=== PATIENT | female | born 1970 | race Caucasian/White ===

== ENCOUNTER 2020-02-23 09:56 | Outpatient (CLI) | payer OTHER ==
[2020-02-23 13:27] LABS: BASOPHILS # (AUTO) 0.1 10^3/uL (0.0-0.1); EOSINOPHILS # (AUTO) 1.5 10^3/uL (0.0-0.7); EOSINOPHILS % (AUTO) 11.4 %; LYMPHOCYTES # (AUTO) 2.6 10^3/uL (1.5-3.5); LYMPHOCYTES % (AUTO) 20.5 %; MEAN CORPUSCULAR HEMOGLOBIN 29.3 pg (27.0-31.0); MEAN CORPUSCULAR HGB CONC 31.7 g/dL (32.0-36.0); MEAN CORPUSCULAR VOLUME 92.4 fL (81.0-99.0); MONOCYTES # (AUTO) 0.9 10^3/uL (0.0-1.0); MONOCYTES % (AUTO) 6.6 %; NEUTROPHILS # (AUTO) 7.7 10^3/uL (1.5-6.6); PLT - PLATELET COUNT 359 10^3/uL (130-450); RED BLOOD COUNT 5.12 10^6/uL (4.20-5.40); RED CELL DISTRIBUTION WIDTH 14.8 % (12.0-15.0); WHITE BLOOD COUNT 12.8 x10^3/uL (4.8-10.8)
[2020-02-23 13:38] LABS: HB2 TOTAL 15.8 g/dL; HEMOGLOBIN A1C 0.54 g/dL; HEMOGLOBIN A1C % 5.3 % (4.6-6.2)
[2020-02-23 13:40] LABS: ALBUMIN 3.8 g/dL (3.2-5.5); ALKALINE PHOSPHATASE 91 IU/L (42-121); ALT ALANINE AMINOTRANSFERASE 50 IU/L (10-60); AST ASPARTATE AMINOTRANSFERASE 33 IU/L (10-42); BILIRUBIN,TOTAL 0.6 mg/dL (0.2-1.0); BUN - BLOOD UREA NITROGEN 24 mg/dL (6-20); CALCIUM 9.1 mg/dL (8.5-10.3); CARBON DIOXIDE - CO2 21 mmol/L (21-32); CHLORIDE 109 mmol/L (101-111); CHOL/HDL RATIO 3.9 (<4.4); CHOLESTEROL 234 mg/dL; CREATININE 0.8 mg/dL (0.4-1.0); GLUCOSE 111 mg/dL (70-100); HDL CHOLESTEROL 60 mg/dL; LDL CHOLESTEROL,CALCULATED 149 mg/dL; LDL/HDL RATIO 2.5 (<4.4); SODIUM 137 mmol/L (135-145); TOTAL PROTEIN 7.7 g/dL (6.7-8.2); VLDL CHOLESTEROL 25 mg/dL
[2020-02-23 14:13] LABS: FREE T4 (FREE THYROXINE) 0.59 ng/dL (0.58-1.64)
[2020-02-23 14:49] LABS: RBC MORPHOLOGY (MULTIPLE) 1+ ANISOCYTOSIS (NORMAL)
== END 2020-02-23 23:59 | disposition home or self-care (01) ==
LOC: LAB.WCP 09:56
PROVIDERS: ATTEND Family Medicine
DX: Z00.00 Encounter for general adult medical examination without abnormal findings (principal); E03.9 Hypothyroidism, unspecified
CPT/HCPCS: 36415; 80053; 80061; 83036; 83721; 84439; 84443; 85025

== ENCOUNTER 2020-02-23 09:58 | Outpatient (CLI) | payer OTHER ==
--- NOTE | 2020-02-24 09:01 | XRAY Report ---
Reason: RIGHT SHOULDER PAIN Procedure Date: 02/23/2020 Accession Number: [id number] / [id number] Procedure: WCP - Shoulder 2 View RT CPT Code: Final Report FULL RESULT: EXAM: RIGHT SHOULDER RADIOGRAPHY EXAM DATE: 02/23/2020 10:41 AM. CLINICAL HISTORY: Right shoulder pain. COMPARISON: None. TECHNIQUE: 2 views. FINDINGS: No fracture or subluxation. No calcific tendinosis. Mild osteophytic spurring at the AC articulation. The glenohumeral articulation appears preserved. The subacromial space appears within normal limits. The imaged portion of the right upper lung appears clear. IMPRESSION: Mild degenerative changes at the right shoulder. RADIA
== END 2020-02-23 23:59 | disposition home or self-care (01) ==
LOC: DI.WCP 09:58
PROVIDERS: ATTEND Family Medicine
DX: M19.011 Primary osteoarthritis, right shoulder (principal)

== ENCOUNTER 2021-01-08 09:46 | Outpatient (CLI) | payer OTHER ==
--- NOTE | 2021-01-08 10:29 | XRAY Report ---
PROCEDURE: Chest 2 View X-Ray INDICATIONS: CHEST PX TECHNIQUE: 2 view(s) of the chest. COMPARISON: None. FINDINGS: Surgical changes and devices: None. Lungs and pleura: No pleural effusions or pneumothorax. Lungs are clear. Mediastinum: Mediastinal contours are normal. Heart size is normal. Bones and chest wall: No suspicious bony abnormalities. Soft tissues appear unremarkable. IMPRESSION: Chest without acute cardiopulmonary abnormalities or focal airspace disease. Reviewed by: Gabino Stacy MD on 01/08/2021 10:27 AM PDT Approved by: Gabino Stacy MD on 01/08/2021 10:27 AM PDT Station ID: [id number]
== END 2021-01-08 09:47 | disposition home or self-care (01) ==
LOC: DI.N 09:46
PROVIDERS: ATTEND Family Medicine
DX: R07.9 Chest pain, unspecified (principal)

== ENCOUNTER 2021-01-08 09:53 | Outpatient (CLI) | payer OTHER ==
[2021-01-08 12:13] LABS: BASOPHILS # (AUTO) 0.1 10^3/uL (0.0-0.1); BASOPHILS % (AUTO) 0.7 %; EOSINOPHILS # (AUTO) 0.5 10^3/uL (0.0-0.7); EOSINOPHILS % (AUTO) 4.5 %; HCT - HEMATOCRIT 46.1 % (37.0-47.0); HGB - HEMOGLOBIN 14.9 g/dL (12.0-16.0); LYMPHOCYTES # (AUTO) 2.1 10^3/uL (1.5-3.5); MEAN CORPUSCULAR HEMOGLOBIN 30.9 pg (27.0-31.0); MEAN CORPUSCULAR HGB CONC 32.3 g/dL (32.0-36.0); MEAN CORPUSCULAR VOLUME 95.6 fL (81.0-99.0); MEAN PLATELET VOLUME 10.7 fL (7.9-10.8); MONOCYTES # (AUTO) 0.7 10^3/uL (0.0-1.0); MONOCYTES % (AUTO) 6.4 %; NEUTROPHILS # (AUTO) 7.1 10^3/uL (1.5-6.6); PLT - PLATELET COUNT 340 10^3/uL (130-450); RED BLOOD COUNT 4.82 10^6/uL (4.20-5.40); RED CELL DISTRIBUTION WIDTH 14.3 % (12.0-15.0); WHITE BLOOD COUNT 10.4 x10^3/uL (4.8-10.8)
[2021-01-08 12:15] LABS: ALBUMIN 3.9 g/dL (3.2-5.5); ALKALINE PHOSPHATASE 94 IU/L (42-121); ALT ALANINE AMINOTRANSFERASE 31 IU/L (10-60); AST ASPARTATE AMINOTRANSFERASE 22 IU/L (10-42); BILIRUBIN,TOTAL 0.6 mg/dL (0.2-1.0); BUN - BLOOD UREA NITROGEN 17 mg/dL (6-20); CALCIUM 9.3 mg/dL (8.5-10.3); CARBON DIOXIDE - CO2 25 mmol/L (21-32); CHLORIDE 105 mmol/L (101-111); CHOL/HDL RATIO 3.8 (<4.4); CHOLESTEROL 224 mg/dL; CREATININE 0.9 mg/dL (0.4-1.0); GFR - MDRD 66 (>89); GLUCOSE 112 mg/dL (70-100); HDL CHOLESTEROL 59 mg/dL; LDL CHOLESTEROL,CALCULATED 138 mg/dL; LDL/HDL RATIO 2.3 (<4.4); POTASSIUM 4.4 mmol/L (3.5-5.0); SODIUM 139 mmol/L (135-145); TRIGLYCERIDES 137 mg/dL; VLDL CHOLESTEROL 27 mg/dL
[2021-01-08 12:24] LABS: THYROID STIMULATING HORMONE 2.46 uIU/mL (0.34-5.60)
[2021-01-08 12:33] LABS: ESTIMATED AVERAGE GLUCOSE 105 mg/dL (70-100); HEMOGLOBIN A1c% 5.3 % (4.27-6.07)
== END 2021-01-08 09:54 | disposition home or self-care (01) ==
LOC: LAB.N 09:53
PROVIDERS: ATTEND Family Medicine
DX: Z00.00 Encounter for general adult medical examination without abnormal findings (principal); R07.9 Chest pain, unspecified; E66.01 Morbid (severe) obesity due to excess calories; E03.9 Hypothyroidism, unspecified
CPT/HCPCS: 36415; 80053; 80061; 83036; 83721; 84443; 84484; 85025

== ENCOUNTER 2021-01-28 07:00 | Outpatient (CLI) | payer OTHER ==
--- NOTE | 2021-01-28 10:49 | XRAY Report ---
PROCEDURE: Shoulder 3 View RT INDICATIONS: R SHOULDER PX TECHNIQUE: 4 views of the shoulder were acquired. COMPARISON: None. FINDINGS: Bones: No fractures or dislocations, but there is a mild to moderate degree of AC joint osteoarthrit is.. No suspicious bony lesions. Visualized ribs appear intact. Soft tissues: No suspicious soft tissue calcifications. IMPRESSION: No trauma found but there is mild to moderate AC joint osteoarthritis. Reviewed by: Marcus Cook MD on 01/28/2021 10:47 AM PDT Approved by: Marcus Cook MD on 01/28/2021 10:47 AM PDT Station ID: [id number]
--- NOTE | 2021-01-28 10:52 | XRAY Report ---
PROCEDURE: Knee 4 View RT INDICATIONS: R KNEE PX TECHNIQUE: 4 views of the right knee(s) were acquired. COMPARISON: None. FINDINGS: Bones: No acute fractures or dislocations. Moderate-severe tricompartmental degenerative changes of the right knee most pronounced in the patellofemoral and medial femorotibial compartment. No suspici ous bony lesions. Prominent lateral and patellofemoral compartment marginal osteophytes. Soft tissues: Small joint effusion. No suspicious soft tissue calcifications. IMPRESSION: 1. Right knee without acute fracture or dislocation. 2. Moderate-severe tricompartmental right knee osteoarthrosis most pronounced in the patellofemoral a nd medial femorotibial compartments. Reviewed by: Gabino Stacy MD on 01/28/2021 9:51 AM REMY Approved by: Gabino Stacy MD on 01/28/2021 9:51 AM REMY Station ID: [id number]
== END 2021-01-28 23:59 | disposition home or self-care (01) ==
LOC: DI.N 07:00
PROVIDERS: ATTEND Orthopaedic Surgery
DX: M19.011 Primary osteoarthritis, right shoulder (principal); M17.11 Unilateral primary osteoarthritis, right knee

== ENCOUNTER 2021-02-11 13:09 | Outpatient (CLI) | payer OTHER ==
--- NOTE | 2021-02-19 12:12 | Mammography Report ---
BILATERAL DIGITAL SCREENING MAMMOGRAM 3D/2D: 02/11/2021 CLINICAL: Routine screening. Additional films were requested but not obtained. The tissue of both breasts is predominantly fatty. No significant masses, calcifications, or other findings are seen in either breast. IMPRESSION: NEGATIVE There is no mammographic evidence of malignancy. A 1 year screening mammogram is recommended. This exam was interpreted at Station ID: [id number]. NOTE: For mammograms, a report in lay terms will be sent to the patient. Approximately 15% of breast malignancies will not be visualized mammographically. In the management of a palpable breast mass, a negative mammogram must not discourage biopsy of a clinically suspicious lesion. Electronically Signed By: Karsten campuzano/sadni:02/18/2021 08:49:05 ACR BI-RADS Category 1: Negative 3341F PARENCHYMAL PATTERN: (F) - The breast(s) demonstrate(s) diffuse fatty replacement. BI-RADS CATEGORY: (1) - 1 RECOMMENDATION: (ANNUAL) - Recommend routine annual screening mammography. 20220212 1 year screening LATERALITY: (B)
== END 2021-02-11 13:10 | disposition home or self-care (01) ==
LOC: DI.N 13:09
DX: Z12.31 Encounter for screening mammogram for malignant neoplasm of breast (principal)

== ENCOUNTER 2021-03-09 09:47 | Outpatient (CLI) | payer OTHER ==
[2021-03-09] MEDS ORDERED: IOVERSOL 320 100 ML VIAL IVP ONE ×2 (09:49→11:43)
[2021-03-09] MEDS ORDERED: IOPAMIDOL-300 50 ML VIAL ONE (09:50)
[2021-03-09] MEDS ORDERED: IOPAMIDOL-300 50 ML VIAL PO ONE (11:43)
--- NOTE | 2021-03-09 20:09 | CT Report ---
PROCEDURE: Abdomen/Pelvis W INDICATIONS: HERNIA CONTRAST: IV CONTRAST: Optiray 320 ml: 100 PO CONTRAST: Isovue 300 ml50 TECHNIQUE: After the administration of oral and IV contrast, 5 mm thick sections acquired from the diaphragms to the symphysis. 5 mm thick coronal and sagittal reformats were acquired. For radiation dose reducti on, the following was used: automated exposure control, adjustment of mA and/or kV according to dinora ent size. COMPARISON: None. FINDINGS: Image quality: This study is limited by body habitus. There is artifact associated with the metall ic hardware. ABDOMEN: Lung bases: Lung bases are clear. Heart size is normal. A small hiatal hernia is incidentally note d. Solid organs: Diffuse fatty liver infiltration can be seen. The liver is enlarged. Gallbladder has b een removed. Biliary system is non dilated. No significant splenic abnormality is seen. Pancreas en hances normally. No adrenal nodules. Kidneys demonstrate normal size and enhancement, without hydro nephrosis. Along the posterior aspect of the left kidney, there is a simple appearing cyst seen that measures water density and 1.5 cm. Peritoneum and bowel: Bowel loops demonstrate normal wall thickness and caliber. No free fluid or a ir. Nodes and vessels: No retroperitoneal or mesenteric adenopathy by size criteria. Aorta and inferior vena cava are normal in size. Miscellaneous: There is a prominent right lower quadrant hernia seen, which contains nondilated colon and small bowel, as well as fat. PELVIS: Genitourinary: Bladder wall thickness is normal. The uterus demonstrates an unremarkable appearance for age. No adnexal masses are seen. Miscellaneous: No inguinal hernias or adenopathy. Bones: No suspicious bony lesions. No vertebral body compression fractures. Degenerative changes ar e seen throughout, which are worst involving the lower lumbar spine. Mild dextroconvex scoliotic curv ature is seen. Right hip arthroplasty hardware is seen, with associated streak artifact. IMPRESSION: Prominent right lower quadrant abdominal wall hernia, which contains fat, nondilated col on, and nondilated loops of small bowel. Incidental note is made of: Small hiatal hernia Enlarged, fatty liver. Simple appearing left renal cyst Cholecystectomy Lower lumbar spine degenerative change Right hip arthroplasty, with associated streak artifact Reviewed by: Chidi Martinez MD on 03/09/2021 7:08 PM AKDT Approved by: Chidi Martinez MD on 03/09/2021 7:08 PM REMY Station ID: [id number]
== END 2021-03-09 09:48 | disposition home or self-care (01) ==
LOC: DI 09:47
PROVIDERS: ATTEND Surgery
DX: K43.9 Ventral hernia without obstruction or gangrene (principal)
CPT/HCPCS: 74177; Q9967

== ENCOUNTER 2022-01-19 22:00 | Outpatient (CLI) | payer OTHER | END 2022-01-19 22:01 | disposition critical access hospital (66) | LOC: EMS 22:00 | DX: R10.31 Right lower quadrant pain (principal); K59.00 Constipation, unspecified; R11.2 Nausea with vomiting, unspecified | CPT/HCPCS: A0425; A0427 ==

== ENCOUNTER 2022-01-19 22:18 | Emergency (ER) | payer OTHER ==
--- OUTSIDE RECORDS SUMMARY | 2022-01-19 22:30 | EXTERNAL MEDICAL SUMMARY RPT | Continuity of Care Document ---
:1970 Author Organization [facility] Address [address] [place] [address] Phone Care Team Providers Name Role Phone Dora, Елена Unavailable Unavailable Allergies No information. Encounters No information. Medications No information. Problems date description facility [id number] Shortness of breath [facility] [id number] Pain in right foot [facility] Results No information.
--- NOTE | 2022-01-19 23:13 | ED Physician Documentation ---
PD HPI ABD PAIN - Stated complaint Stated Complaint: ABD PX - Chief complaint Chief Complaint: Abd Pain - History obtained from History obtained from: Patient, EMS - History of Present Illness Timing - onset: Enter time (16:30), Today Timing - details: Gradual onset Pain level now: 8 Quality: Pain Location: RLQ Improved by: Meds (improved with zofran and fentanyl given by EMS en route) Worsened by: Palpation Associated symptoms: Nausea, Vomiting. No: Fever, Hematemesis, Melena, Hematochezia Similar symptoms before: Diagnosis (hernia) Recently seen: Not recently seen - Additional information Additional information: BIBA for abdominal pain, nausea and vomiting. Patient has a remote h/o appendectomy, subsequently (in 1998) had hernia through the appendectomy incision site with repair performed in 1999 which was not successful. She says she has had a gradually increasing hernia since that time. She was evaluated by surgeon last year in outpatient setting and was told no intervention could be undertaken until she loses weight. She has not been to an ED before for this hernia and has never had pain associated with the hernia before. At approximately 4:30 PM today, she had gradual onset of RLQ pain in the area of the hernia, waxing and waning in intensity but steadily progressive , becoming associated with nausea and vomiting. She has improved with IV zofran (4mg) and IV fentanyl (200 micrograms) given by EMS BUILDING CONSTRUCTION ENGINEER. Review of Systems Constitutional: denies: Fever Eyes: reports: Reviewed and negative Ears: reports: Reviewed and negative Nose: reports: Reviewed and negative Throat: reports: Reviewed and negative Cardiac: reports: Reviewed and negative Respiratory: reports: Reviewed and negative GI: reports: Abdominal Pain, Nausea, Vomiting. denies: Diarrhea, Hematemesis, Bloody / black stool : denies: Dysuria, Frequency Skin: reports: Reviewed and negative Musculoskeletal: reports: Reviewed and negative Neurologic: reports: Reviewed and negative PD PAST MEDICAL HISTORY - Past Medical History Past Medical History: Yes Cardiovascular: Hypertension, High cholesterol Endocrine/Autoimmune: HyPOthyroidism GI: GERD Psych: Depression, Anxiety Musculoskeletal: Osteoarthritis - Past Surgical History Past Surgical History: Yes General: Cholecystectomy, Appendectomy, Other Ortho: Hip replacement, Arthroscopic surgery /FIELD RESEARCH ASSISTANT: section - Present Medications Home Medications: Ambulatory Orders Medication Instructions Recorded Confirmed ALPRAZolam [Alprazolam] 0.5 mg PO PRN PRN 01/19/22 01/19/22 Celecoxib [Celebrex] 200 mg PO DAILY 01/19/22 01/19/22 Duloxetine HCl [Cymbalta] 60 mg PO DAILY 01/19/22 01/19/22 Gabapentin [Neurontin] 300 mg PO DAILY 01/19/22 01/19/22 Levothyroxine [Synthroid] 125 mcg PO DAILY 01/19/22 01/19/22 Oxybutynin [Ditropan] 5 mg PO DAILY 01/19/22 01/19/22 Venlafaxine ER [Effexor ER] 75 mg PO DAILY 01/19/22 01/19/22 buPROPion [Wellbutrin Xl] 150 mg PO DAILY 01/19/22 01/19/22 - Allergies Allergies/Adverse Reactions: Allergies Allergy/AdvReac Type Severity Reaction Status Date / Time morphine Allergy Hallucinati Verified 01/19/22 22:30 ons - Social History Does the pt smoke?: No Smoking Status: Never smoker Does the pt drink ETOH?: No Does the pt have substance abuse?: No - Immunizations Immunizations are current?: Yes PD ED PE NORMAL - Vitals Vital signs reviewed: Yes - General General: Alert and oriented X 3, Other (morbidly obese. obvious painful distress) - HEENT HEENT: Moist mucous membranes - Neck Neck: Supple, no meningeal sign - Cardiac Cardiac: RRR, No murmur - Respiratory Respiratory: No respiratory distress, Clear bilaterally - Back Back: No CVA TTP - Derm Derm: Normal color, Warm and dry - Extremities Extremities: No edema - Neuro Neuro: Alert and oriented X 3 PD ED PE EXPANDED - Abdomen Abdomen: Decreased BS, Tender to palpation (large RLQ hernia, TTP) Results - Vitals Vitals: Vital Signs - 24 hr 01/20/22 01/20/22 01/20/22 10:00 12:00 13:30 Heart Rate 89 97 87 Respiratory 12 20 20 Rate Blood Pressure 149/83 H 152/94 H 144/75 H O2 Saturation 92 97 92 01/20/22 15:00 Heart Rate 103 H Respiratory 20 Rate Blood Pressure 137/83 H O2 Saturation 98 Oxygen O2 Source Room air Oxygen Flow Rate 2 - Labs Labs: Laboratory Tests 01/19/22 01/19/22 01/19/22 00:10 00:10 00:10 WBC 14.4 H RBC 4.79 Hgb 14.4 Hct 44.0 MCV 91.9 MCH 30.1 MCHC 32.7 RDW 14.9 Plt Count 307 MPV 10.4 Neut # (Auto) 11.8 H Lymph # (Auto) 1.4 L Will # (Auto) 0.7 Eos # (Auto) 0.3 Baso # (Auto) 0.1 Absolute Nucleated RBC 0.00 Nucleated RBC % 0.0 Sodium 137 Potassium 4.3 Chloride 101 Carbon Dioxide 24 Anion Gap 12.0 BUN 19 Creatinine 0.8 Estimated GFR (MDRD) 75 L Glucose 156 H Lactic Acid 1.7 Calcium 9.2 Total Bilirubin 0.7 AST 45 H ALT 54 Alkaline Phosphatase 110 Total Protein 8.2 Albumin 3.6 Globulin 4.6 H Albumin/Globulin Ratio 0.8 L Lipase 37 Nasal Adenovirus (PCR) Nasal B. parapertussis DNA (PCR) Nasal Coronavir 229E PCR Nasal Coronavir HKU1 PCR Nasal Coronavir NL63 PCR Nasal Coronavir OC43 PCR Nasal Enterovir/Rhinovir PCR Nasal Influenza B PCR Nasal Influenza A PCR Nasal Parainfluen 1 PCR Nasal Parainfluen 2 PCR Nasal Parainfluen 3 PCR Nasal Parainfluen 4 PCR Nasal RSV (PCR) Nasal B.pertussis DNA PCR Nasal C.pneumoniae (PCR) Olegario Human Metapneumo PCR Nasal M.pneumoniae (PCR) Nasal SARS-CoV-2 (PCR) 01/20/22 01/20/22 01/20/22 06:05 07:36 07:36 WBC 12.5 H RBC 4.99 Hgb 15.4 Hct 46.0 MCV 92.2 MCH 30.9 MCHC 33.5 RDW 15.3 H Plt Count 345 MPV 10.5 Neut # (Auto) 9.8 H Lymph # (Auto) 1.6 Will # (Auto) 0.9 Eos # (Auto) 0.1 Baso # (Auto) 0.1 Absolute Nucleated RBC 0.00 Nucleated RBC % 0.0 Sodium Potassium Chloride Carbon Dioxide Anion Gap BUN Creatinine Estimated GFR (MDRD) Glucose Lactic Acid 1.5 Calcium Total Bilirubin AST ALT Alkaline Phosphatase Total Protein Albumin Globulin Albumin/Globulin Ratio Lipase Nasal Adenovirus (PCR) NOT DETECTED Nasal B. parapertussis DNA (PCR) NOT DETECTED Nasal Coronavir 229E PCR NOT DETECTED Nasal Coronavir HKU1 PCR NOT DETECTED Nasal Coronavir NL63 PCR NOT DETECTED Nasal Coronavir OC43 PCR NOT DETECTED Nasal Enterovir/Rhinovir PCR DETECTED A Nasal Influenza B PCR NOT DETECTED Nasal Influenza A PCR NOT DETECTED Nasal Parainfluen 1 PCR NOT DETECTED Nasal Parainfluen 2 PCR NOT DETECTED Nasal Parainfluen 3 PCR NOT DETECTED Nasal Parainfluen 4 PCR NOT DETECTED Nasal RSV (PCR) NOT DETECTED Nasal B.pertussis DNA PCR NOT DETECTED Nasal C.pneumoniae (PCR) NOT DETECTED Olegario Human Metapneumo PCR NOT DETECTED Nasal M.pneumoniae (PCR) NOT DETECTED Nasal SARS-CoV-2 (PCR) NOT DETECTED - Rads (name of study) CT A/P with IV and PO contrast Radiology: Prelim report reviewed, See rad report PD MEDICAL DECISION MAKING - ED course Complexity details: reviewed old records, reviewed results, re-evaluated patient, considered differential, d/w patient ED course: presents via ambulance with pain associated with RLQ hernia with nausea and vomiting. She has had this hernia since 1999 but has not been associated with this pain before. I attempted to reduce the hernia but it is too large and too tender to reduce. During ED stay she required repeated doses of IV dilaudid for pain control. She is also given repeat doses of zofran and phenergan for n/v. CT A/P interpreted by radiology as : 1. Large right lower quadrant abdominal wall hernia with associated early or partial small bowel obstruction. 2. Moderate to severe diffuse hepatic steatosis. At the time of this reading, surgical services not available at [facility]. I contacted the surgeon bonding machine operator at [facility]; the patient's BMI exceeds their capabilities. NGT placed by ED RN with over 1500 output to intermittent LWS; this resulted in some improvement in symptoms although she again required IV dilaudid due to recurrence of her pain. I then discussed the case with surgery bonding machine operator at [facility], but there are no beds available at their facility at this time. At this point, surgery bonding machine operator became available at [facility]. I discussed the case with Dr. Hammond who recommends transfer of patient due to BMI. I then discussed the case with Dr. Ponce (surgeon at [facility]). There was a delay in the transfer of images from [facility] to their facility. He subsequently called back after he had reviewed the images, recommends admit to [facility]. Dr. Hammond was recontacted and evaluated patient in ED; she spoke with Dr. Ponce and patient is accepted for transfer to [facility] Departure - Departure Disposition: 01 Home, Self Care Clinical Impression: Incarcerated hernia of abdominal cavity Condition: Stable Instructions: Obstruction Sm Bowel Comments: Do not eat or drink for the next 6 to 12 hours, then clear liquids for another 24 hours. Return for new or worsening symptoms or if pain recurs or vomiting recurs. Discharge Date/Time: 01/20/22 16:47
[2022-01-19] MEDS ORDERED: ONDANSETRON 4 MG/2 ML VIAL IVP STA (23:30)
[2022-01-19] MEDS ORDERED: HYDROmorphone 1 MG/ML CARPUJECT IVP STA (23:30)
[2022-01-19] MEDS ORDERED: IOVERSOL 320 100 ML VIAL IVP ONE (23:42)
[2022-01-19] MEDS ORDERED: IOVERSOL 320 50 ML VIAL ONE (23:42)
[2022-01-20 00:21] LABS: BASOPHILS # (AUTO) 0.1 10^3/uL (0.0-0.1); BASOPHILS % (AUTO) 0.7 %; EOSINOPHILS # (AUTO) 0.3 10^3/uL (0.0-0.7); HGB - HEMOGLOBIN 14.4 g/dL (12.0-16.0); LYMPHOCYTES # (AUTO) 1.4 10^3/uL (1.5-3.5); LYMPHOCYTES % (AUTO) 9.7 %; MEAN CORPUSCULAR HEMOGLOBIN 30.1 pg (27.0-31.0); MEAN CORPUSCULAR HGB CONC 32.7 g/dL (32.0-36.0); MEAN CORPUSCULAR VOLUME 91.9 fL (81.0-99.0); MEAN PLATELET VOLUME 10.4 fL (7.9-10.8); MONOCYTES # (AUTO) 0.7 10^3/uL (0.0-1.0); MONOCYTES % (AUTO) 4.9 %; NEUTROPHILS # (AUTO) 11.8 10^3/uL (1.5-6.6); PLT - PLATELET COUNT 307 10^3/uL (130-450); RED BLOOD COUNT 4.79 10^6/uL (4.20-5.40); RED CELL DISTRIBUTION WIDTH 14.9 % (12.0-15.0); WHITE BLOOD COUNT 14.4 x10^3/uL (4.8-10.8)
[2022-01-20 00:30] LABS: ALBUMIN 3.6 g/dL (3.2-5.5); ALBUMIN/GLOBULIN RATIO 0.8 (1.0-2.2); BILIRUBIN,TOTAL 0.7 mg/dL (0.2-1.0); CALCIUM 9.2 mg/dL (8.5-10.3); CREATININE 0.8 mg/dL (0.4-1.0); POTASSIUM 4.3 mmol/L (3.5-5.0); TOTAL PROTEIN 8.2 g/dL (6.7-8.2)
[2022-01-20] MEDS ORDERED: HYDROmorphone 1 MG/ML CARPUJECT IVP STA ×4 (01:44→07:42)
[2022-01-20] MEDS ORDERED: ONDANSETRON 4 MG/2 ML VIAL IVP STA ×2 (01:44→06:15)
[2022-01-20] MEDS ORDERED: IOVERSOL 320 50 ML VIAL PO ONE (03:06)
[2022-01-20] MEDS ORDERED: IOVERSOL 320 100 ML VIAL IVP ONE (03:08)
[2022-01-20] MEDS ORDERED: PROMETHAZINE INJ 25 MG in SODIUM CHLORIDE 0.9% 50 ML IV STA (04:05)
[2022-01-20] MEDS ORDERED: PROMETHAZINE 25 MG/1 ML VIAL ONE (04:19)
[2022-01-20] MEDS ORDERED: LIDOCAINE VISCOUS 2% 15 ML UDC MM STA (06:18)
[2022-01-20 07:02] LABS: B. PARAPERTUSSIS- RESP PCR PAN NOT DETECTED; B. PERTUSSIS- RESP PCR PANEL NOT DETECTED; C. PNEUMONIAE- RESP PCR PANEL NOT DETECTED; CORONAVIRUS 229E-RESP PCR NOT DETECTED; CORONAVIRUS HKU1-RESP PCR NOT DETECTED; CORONAVIRUS NL63-RESP PCR NOT DETECTED; CORONAVIRUS OC43-RESP PCR NOT DETECTED; HUMAN METAPNEUMOVIRUS NOT DETECTED; INFLUENZA A- RESP PCR PANEL NOT DETECTED; INFLUENZA B - RESP PCR PANEL NOT DETECTED; M. PNEUMONIAE- RESP PCR PANEL NOT DETECTED; PARAINFLUENZA VIRUS 1 NOT DETECTED; PARAINFLUENZA VIRUS 2 NOT DETECTED; PARAINFLUENZA VIRUS 3 NOT DETECTED; PARAINFLUENZA VIRUS 4 NOT DETECTED; RHINOVIRUS/ENTEROVIRUS DETECTED; RSV- RESP PCR PANEL NOT DETECTED; SARS-CoV-2 -RESP PCR PANEL NOT DETECTED
[2022-01-20] MEDS ORDERED: SODIUM CHLORIDE 0.9% 1,000 ML IV STA (07:42)
[2022-01-20 07:47] LABS: BASOPHILS # (AUTO) 0.1 10^3/uL (0.0-0.1); BASOPHILS % (AUTO) 0.6 %; EOSINOPHILS # (AUTO) 0.1 10^3/uL (0.0-0.7); EOSINOPHILS % (AUTO) 0.9 %; HGB - HEMOGLOBIN 15.4 g/dL (12.0-16.0); LYMPHOCYTES # (AUTO) 1.6 10^3/uL (1.5-3.5); LYMPHOCYTES % (AUTO) 12.4 %; MEAN CORPUSCULAR HEMOGLOBIN 30.9 pg (27.0-31.0); MEAN CORPUSCULAR HGB CONC 33.5 g/dL (32.0-36.0); MEAN CORPUSCULAR VOLUME 92.2 fL (81.0-99.0); MEAN PLATELET VOLUME 10.5 fL (7.9-10.8); MONOCYTES # (AUTO) 0.9 10^3/uL (0.0-1.0); MONOCYTES % (AUTO) 7.2 %; NEUTROPHILS # (AUTO) 9.8 10^3/uL (1.5-6.6); NEUTROPHILS % (AUTO) 78.4 %; PLT - PLATELET COUNT 345 10^3/uL (130-450); RED BLOOD COUNT 4.99 10^6/uL (4.20-5.40); RED CELL DISTRIBUTION WIDTH 15.3 % (12.0-15.0); WHITE BLOOD COUNT 12.5 x10^3/uL (4.8-10.8)
--- NOTE | 2022-01-20 07:59 | CT Report ---
PROCEDURE: Abdomen/Pelvis W INDICATIONS: abd. pain CONTRAST: IV CONTRAST: Optiray 320 ml: 100 PO CONTRAST: Optiray 320 ml50 TECHNIQUE: After the administration of oral and intravenous contrast, 5 mm thick sections acquired from the diap hragms to the symphysis. 5 mm thick coronal and sagittal reformats were acquired. For radiation dos e reduction, the following was used: automated exposure control, adjustment of mA and/or kV accordin g to patient size. COMPARISON: 03/09/2021 FINDINGS: Image quality: Images somewhat compromised by patient body habitus, as well as the presence of a tota l right hip arthroplasty.. ABDOMEN: Lung bases: Lung bases are clear. Heart size is normal. Solid organs: Liver and spleen are normal in size and enhancement. Moderate to severe diffuse hepati c steatosis. Gallbladder is surgically absent. Biliary system is non dilated. Pancreas enhances no rmally. No adrenal nodules. Kidneys demonstrate normal size and enhancement, without hydronephrosis . Peritoneum and bowel: Bowel loops demonstrate normal wall thickness and caliber. No free fluid or a ir. Nodes and vessels: No retroperitoneal or mesenteric adenopathy by size criteria. Aorta and inferior vena cava are normal in size. Miscellaneous: Again noted is a large right lower quadrant abdominal wall hernia with early or partia l small bowel obstruction within the hernia. PELVIS: Genitourinary: Bladder wall thickness is normal. Miscellaneous: No inguinal hernias or adenopathy. Bones: No suspicious bony lesions. No vertebral body compression fractures. IMPRESSION: 1. Large right lower quadrant abdominal wall hernia with associated early or partial small bowel obst ruction. 2. Moderate to severe diffuse hepatic steatosis. Findings are concordant with preliminary interpretation provided by [facility]. Reviewed by: Antione Walter MD on 01/20/2022 7:58 AM PDT Approved by: Antione Walter MD on 01/20/2022 7:58 AM PDT Station ID: [id number]
[2022-01-20] MEDS ORDERED: D5.45NS W/20 MEQ KCL 1,000 ML IV SCH (08:00)
--- NOTE | 2022-01-20 09:24 | ED Physician Documentation ---
ED Addendum - Addendum Addendum: 01/20/22 09:[address] Brooks at shift change. Briefly this is a 51-year-old woman with known chronic right lower quadrant hernia now with symptoms of obstruction and a CAT scan suggesting same. Requiring significant narcotic analgesia and's had 1700 initially out from her NG tube. Per Dr. Brooks he talked with [facility] and she was too obese for their facility. He spoke with the surgeon at [facility] who viewed the images and did not feel that she was obstructed and recommended we have our surgeon evaluate her. Dr. Hammond at the bedside approximately 9:24 AM to evaluate the patient. 01/20/22 11:08 Dr. Hammond discussed with Dr. Ponce at [facility] who subsequently accepted the pa tient to a higher level of care. Transfer pending bed availability not immediately available. 01/20/22 15:17 This point she has not required pain medication in about 7 or 8 hours. She requested the NG tube be removed. She is only had about 50 mL out over the last few hours. Her pain is resolved. She requests to go home. I discussed with her that it seemed quick to go home even though it does seem that her bowel obstruction is resolving, but she is a nurse and understands return precautions. Disposition: Discharged home Condition: Stable Diagnosis: 1. Resolving bowel obstruction
[2022-01-20 15:10] VITALS: BP 137/83
== END 2022-01-20 16:47 | disposition home or self-care (01) ==
LOC: EDUNIT# → EDBD → ED 22:18
DX: K43.6 Other and unspecified ventral hernia with obstruction, without gangrene (principal); Z20.822 Contact with and (suspected) exposure to COVID-19
CPT/HCPCS: 36415; 43753; 74177; 80053; 83605; 83690; 85025; 87633; 96365; 96375; 96376; 99284; J1170; J7040; Q9967

== ENCOUNTER 2022-05-05 08:00 | Outpatient (CLI) | payer OTHER ==
--- NOTE | 2022-05-05 16:36 | XRAY Report ---
PROCEDURE: Knee 4 View RT INDICATIONS: RIGHT KNEE PAIN TECHNIQUE: 4 views of the right knee(s) were acquired. COMPARISON: X-ray right knee, 01/28/2021. FINDINGS: Bones: No fractures or dislocations. No suspicious bony lesions. Mild lateral subluxation of robb la. There is joint space narrowing in the medial femorotibial compartment with weightbearing, right g reater than left. Tricompartmental knee joint degeneration, most pronounced in the patellofemoral minda nt and medial femorotibial joint, progressed since the last exam. Soft tissues: Small joint effusion. No suspicious soft tissue calcifications. IMPRESSION: 1. Moderate to severe tricompartmental osteoarthritic changes. 2. Small knee joint effusion. 3. Mild lateral subluxation of patella. Reviewed by: Tyrese Jimenez MD on 05/05/2022 4:35 PM PDT Approved by: Tyrese Jimenez MD on 05/05/2022 4:35 PM PDT Station ID: [id number]
== END 2022-05-05 23:59 | disposition home or self-care (01) ==
LOC: DI.WOS 08:00
PROVIDERS: ATTEND Orthopaedic Surgery
DX: M17.11 Unilateral primary osteoarthritis, right knee (principal); M25.461 Effusion, right knee; S83.011A Lateral subluxation of right patella, initial encounter

== ENCOUNTER 2022-08-30 10:36 | Outpatient (CLI) | payer OTHER ==
[2022-08-30 19:03] LABS: BASOPHILS # (AUTO) 0.1 10^3/uL (0.0-0.1); BASOPHILS % (AUTO) 0.7 %; EOSINOPHILS # (AUTO) 0.3 10^3/uL (0.0-0.7); EOSINOPHILS % (AUTO) 3.2 %; HCT - HEMATOCRIT 42.9 % (37.0-47.0); HGB - HEMOGLOBIN 13.7 g/dL (12.0-16.0); LYMPHOCYTES # (AUTO) 2.5 10^3/uL (1.5-3.5); LYMPHOCYTES % (AUTO) 24.8 %; MEAN CORPUSCULAR HEMOGLOBIN 31.1 pg (27.0-31.0); MEAN CORPUSCULAR HGB CONC 31.9 g/dL (32.0-36.0); MEAN CORPUSCULAR VOLUME 97.3 fL (81.0-99.0); MEAN PLATELET VOLUME 11.7 fL (7.9-10.8); MONOCYTES % (AUTO) 10.1 %; NEUTROPHILS # (AUTO) 6.1 10^3/uL (1.5-6.6); NEUTROPHILS % (AUTO) 60.9 %; PLT - PLATELET COUNT 289 10^3/uL (130-450); RED BLOOD COUNT 4.41 10^6/uL (4.20-5.40); RED CELL DISTRIBUTION WIDTH 14.8 % (12.0-15.0); WHITE BLOOD COUNT 10.1 x10^3/uL (4.8-10.8)
[2022-08-30 19:06] LABS: INR 1.1 (0.8-1.2); PT - PROTHROMBIN TIME 12.3 secs (9.9-12.6)
[2022-08-30 19:35] LABS: ALBUMIN 3.6 g/dL (3.2-5.5); ALBUMIN/GLOBULIN RATIO 0.9 (1.0-2.2); BILIRUBIN,TOTAL 0.4 mg/dL (0.2-1.0); CALCIUM 9.1 mg/dL (8.5-10.3); CREATININE 0.9 mg/dL (0.4-1.0); POTASSIUM 4.4 mmol/L (3.5-5.0); TOTAL PROTEIN 7.7 g/dL (6.7-8.2)
[2022-09-01 08:01] LABS: ESTIMATED AVERAGE GLUCOSE 108 mg/dL (70-100); HEMOGLOBIN A1c% 5.4 % (4.27-6.07)
== END 2022-08-30 10:37 | disposition home or self-care (01) ==
LOC: LAB.N 10:36
PROVIDERS: ATTEND Surgery
DX: Z01.812 Encounter for preprocedural laboratory examination (principal); E63.9 Nutritional deficiency, unspecified
CPT/HCPCS: 36415; 80053; 83036; 84443; 85025; 85610

== ENCOUNTER 2022-09-01 12:43 | Outpatient (CLI) | payer OTHER | END 2022-09-01 12:44 | disposition home or self-care (01) | LOC: RT 12:43 | PROVIDERS: ATTEND Surgery | DX: Z01.810 Encounter for preprocedural cardiovascular examination (principal); E66.01 Morbid (severe) obesity due to excess calories | CPT/HCPCS: 93005 ==

== ENCOUNTER 2022-10-03 14:01 | Outpatient (CLI) | payer OTHER | END 2022-10-03 14:02 | disposition home or self-care (01) | LOC: LAB 14:01 | PROVIDERS: ATTEND Surgery | DX: Z20.822 Contact with and (suspected) exposure to COVID-19 (principal) ==